=== PATIENT | female | born 1990 | race Caucasian/White ===

== ENCOUNTER 2020-09-20 09:57 | Emergency (ER) | payer MEDICARE ==
[~2020-09-20] VITALS: Ht 167.6 cm; Wt 53.5 kg
--- NOTE | 2020-09-20 10:12 | NUR ---
dr henriquez at bedside for eval.
--- NOTE | 2020-09-20 10:28 | NUR ---
radiology at bedside for R wrist xray.
[2020-09-20] MEDS ORDERED: HYDROCODONE/APAP 5/325MG TABLET PO ONE (10:30)
[2020-09-20] MEDS ORDERED: HYDROCODONE/APAP 5/325MG TABLET ONE (10:31)
[2020-09-20] MEDS ORDERED: ACETAMINOPHEN 325 MG TABLET ONE (10:35)
--- NOTE | 2020-09-20 10:39 | NUR ---
pt refused norco. ermd aware. tylenol 650mg given po for ermd verbal order.
[2020-09-20] MEDS ORDERED: LIDOCAINE 1%-EPI 1:100,000 20 ML VIAL ONE (11:06)
[2020-09-20 11:52] VITALS: BP 145/92
--- NOTE | 2020-09-20 11:52 | NUR ---
laceration repair done using skin adhesive. Patient discharged to home in stable condition. Written and verbal after care instructions given. Patient verbalizes understanding of instruction.
== END 2020-09-20 11:53 | disposition home or self-care (01) ==
LOC: ER 10:00
DX: S01.81XA Laceration without foreign body of other part of head, initial encounter (principal); S63.8X1A Sprain of other part of right wrist and hand, initial encounter; S09.8XXA Other specified injuries of head, initial encounter; I10 Essential (primary) hypertension; E78.5 Hyperlipidemia, unspecified; E11.9 Type 2 diabetes mellitus without complications; G89.29 Other chronic pain; Z98.890 Other specified postprocedural states; W18.39XA Other fall on same level, initial encounter; Y93.K1 Activity, walking an animal; Y92.89 Other specified places as the place of occurrence of the external cause; Y99.8 Other external cause status
CPT/HCPCS: 12011; 73130; 99283; A6403; J3490

== ENCOUNTER 2020-10-06 15:04 | Inpatient (IN) | payer MEDICARE, OTHER ==
[2020-10-06] VITALS: BP 157/103
[~2020-10-06] VITALS: Ht 167.6 cm; Wt 52.6 kg
--- NOTE | 2020-10-06 15:20 | NUR ---
PT BIBRA 38 FROM HOME, NAUSEA AND VOMITING X 4 DAYS,BLOOD SUGAR ABOVE >500 PER EMS REPORT. PT AAOX4, RESPIRATIONS EVEN AND UNLABORED ON RA W/ NAD NOTED. PT CONNECTED TO THE AIRPORT CLERK AND POX
[2020-10-06] MEDS ORDERED: ONDANSETRON HCL/PF 4 MG/2 ML VIAL IVP ONE (15:30)
[2020-10-06] MEDS ORDERED: IV NS 0.9% 1,000 ML BAG IV ONE ×2 (15:30→16:30)
--- NOTE | 2020-10-06 15:30 | NUR ---
BLOOD COLLECTED AND SENT TO LAB
[2020-10-06] MEDS ORDERED: ONDANSETRON HCL/PF 4 MG/2 ML VIAL ONE ×2 (15:32→20:25)
[2020-10-06] MEDS ORDERED: DULO60CA64 PO (15:43)
[2020-10-06] MEDS ORDERED: ACYC400T PO (15:43)
[2020-10-06] MEDS ORDERED: HYDR-4076 PO (15:43)
[2020-10-06] MEDS ORDERED: PRUC1TAB PO ×2 (15:43→16:41)
[2020-10-06] MEDS ORDERED: GABA600T12 PO (15:43)
[2020-10-06] MEDS ORDERED: ISOS30TA6 PO (15:43)
[2020-10-06] MEDS ORDERED: OXYC36CA PO (15:43)
[2020-10-06 15:51] LABS: BASOPHILS # (AUTO) 0.1 /CMM (0.0-0.2); BASOPHILS % (AUTO) 0.5 % (0.0-2.0); HEMATOCRIT 40 % (33-45); HEMOGLOBIN 12.7 g/dL (11.5-14.8); LYMPHOCYTES # (AUTO) 1.5 /CMM (0.8-4.8); LYMPHOCYTES % (AUTO) 7.2 % (20.0-44.0); MEAN CORPUSCULAR HGB CONC 32 g/dl (31.0-36.0); MEAN CORPUSCULAR VOLUME 99 fL (82-100); MONOCYTES # (AUTO) 0.9 /CMM (0.1-1.30); NEUTROPHILS # (AUTO) 19.1 /CMM (1.8-8.9); NEUTROPHILS % (AUTO) 88.3 % (43.0-81.0); PLATELET COUNT (AUTO) 288 /CMM (150-450); RED BLOOD CELL COUNT(AUTO) 4.05 MIL/uL (4.0-5.2); WHITE BLOOD COUNT (AUTO) 21.6 K/uL (4.3-11.0)
--- NOTE | 2020-10-06 15:59 | NUR ---
covid swab done sent to lab
--- NOTE | 2020-10-06 16:13 | NUR ---
PT UNABLE TO PROVIDE URINE AT THIS TIME. MD THOMASON
[2020-10-06 16:15] LABS: CALCIUM, SERUM 9.4 mg/dL (8.5-10.1); CREATININE 3.6 mg/dL (0.6-1.3); POTASSIUM 4.9 mmol/L (3.5-5.1)
[2020-10-06 16:17] LABS: ALBUMIN 3.5 g/dL (3.4-5.0); BILIRUBIN,DIRECT 0.2 mg/dL (0.0-0.2); BILIRUBIN,TOTAL 0.7 mg/dL (0.2-1.0); TOTAL PROTEIN, SERUM 7.2 g/dL (6.4-8.2)
--- NOTE | 2020-10-06 17:23 | NUR ---
URINE COLLECTED AND SENT TO LAB
[2020-10-06] MEDS ORDERED: HYDROMORPHONE 1 MG/1 ML DISP.SYRIN ONE (17:24)
[2020-10-06] MEDS ORDERED: HYDROMORPHONE 1 MG/1 ML DISP.SYRIN IV ONE (17:30)
[2020-10-06 17:53] LABS: BAND % (MANUAL) 6 % (0.0-5.0); LYMPHOCYTES % (MANUAL) 8 % (16-48); MONOCYTES % (MANUAL) 7 % (0-11.0); NEUTROPHILS % (MANUAL) 79 (42-76)
[2020-10-06] MEDS ORDERED: INSULIN REGULAR, HUMAN 100 UNIT in IV NS 0.9% 100 ML IV STA ×2 (17:55)
[2020-10-06] MEDS ORDERED: IV PREMIX NS +20MEQ KCL 1,000 L IV PRN (18:00)
[2020-10-06] MEDS ORDERED: INSULIN REGULAR, HUMAN 100 UNIT/ML 10 ML VIAL ONE (18:01)
--- NOTE | 2020-10-06 18:06 | NUR ---
CALLED PHARMACY FOR ORDERED MEDS
[2020-10-06 18:16] LABS: BILIRUBIN,URINE Negative (NEGATIVE); BLOOD, URINE Trace-lysed Ery/uL (NEGATIVE); COLOR,URINE YELLOW (YELLOW); LEUKOCYTE ESTERASE ,URINE Negative (NEGATIVE); NITRITE, URINE Negative (NEGATIVE); PROTEIN,URINE 100 mg/dl (NEGATIVE); UGLUCOSE 500 MG/DL mg/dL (NEGATIVE); UROBILINOGEN,URINE 0.2 EU/dL (0.2)
[2020-10-06 18:21] LABS: MAGNESIUM 2.2 mg/dL (1.8-2.4); PHOSPHORUS 7.5 mg/dL (2.5-4.9)
[2020-10-06 18:26] LABS: BACTERIA,URINE Rare /HPF (None Seen); SQUAMOUS EPITHELIAL CELL,UR Few /HPF (None Seen); WBC,URINE NONE SEEN /HPF (0-3)
--- NOTE | 2020-10-06 19:39 | NUR ---
COVID SWAB COLLECTED AND SENT TO LAB
[2020-10-06] MEDS ORDERED: hydrALAZINE HCL IV 20 MG VIAL ONE (20:24)
[2020-10-06] MEDS ORDERED: ONDANSETRON HCL/PF - ER 4 MG/2 ML VIAL IV ONE (20:30)
[2020-10-06] MEDS ORDERED: hydrALAZINE HCL IV 20 MG VIAL IV ONE (20:30)
--- NOTE | 2020-10-06 21:30 | NUR ---
REPORT GIVEN TO LAURA MEDRANO FOR [facility]
--- NOTE | 2020-10-06 21:46 | NUR ---
BP 191/113. REPORTED TO ER . NO ORDERS RECEIVED
[2020-10-06 21:55] LABS: CALCIUM, SERUM 8.7 mg/dL (8.5-10.1); CREATININE 3.1 mg/dL (0.6-1.3); PHOSPHORUS 5.6 mg/dL (2.5-4.9); POTASSIUM 4.6 mmol/L (3.5-5.1)
[2020-10-06] MEDS ORDERED: MAGNESIUM HYDROXIDE 30 ML UDC PO PRN (22:00)
[2020-10-06] MEDS ORDERED: ACETAMINOPHEN 325 MG TABLET PO PRN (22:00)
[2020-10-06] MEDS ORDERED: Z GUARD REMEDY 2 OZ OINT TP PRN (22:00)
[2020-10-06] MEDS ORDERED: INSULIN REGULAR, HUMAN 100 UNIT in IV NS 0.9% 99 ML IV PRN ×2 (22:00)
--- NOTE | 2020-10-06 22:15 | NUR ---
Admitted from ER ,who presented today @ 1400 from home due to worsening nausea and vomiting and high blood sugar,states hasn't been able to eat anything /unable to take anything due to nausea including not taking any of her meds. Blood sugar in ER 755 , WV=972 ,WBC= 21.6 was given 2 liters NSS bolus,started on insulin drip.Dx DKA, Severe Dehydration,Acute Kidney Failure ( CREAT=3.6 ). Patient awake alert, coherent and appropriate, but very weakly and tired ,not in any respiratory distress,still with nausea, c/o back and neck pain as well (Hx of Chronic neck and back pain).BP elevated (hx of HTN) was given Apresoline x 1 dose in ER Will check FS q 1 hr while on insulin drip,pain management , follow up BMP .Closely monitor BP .
[2020-10-06 22:23] VITALS: BP 201/120
[2020-10-06 22:26] VITALS: BP 211/97
[2020-10-06 22:30] VITALS: BP 217/112
[2020-10-06] MEDS: BLOOD SUGAR DIAGNOSTIC 1 EACH STRIP IN SCH ×2 (22:31→23:09)
[2020-10-06] MEDS: HYDROMORPHONE INJ 2 MG/ML DISP.SYRIN IV PRN (22:52)
[2020-10-06] MEDS: ONDANSETRON HCL/PF 4 MG/2 ML VIAL IVP PRN (22:58)
[2020-10-06 23:00] VITALS: BP 200/103
[2020-10-06] MEDS: ENOXAPARIN SODIUM 30 MG/0.3 ML DISP.SYRIN SQ SCH (23:03)
[2020-10-06 23:30] VITALS: BP 212/112
[2020-10-06 23:32] LABS: CALCIUM, SERUM 8.2 mg/dL (8.5-10.1); MAGNESIUM 1.8 mg/dL (1.8-2.4); PHOSPHORUS 4.2 mg/dL (2.5-4.9); POTASSIUM 4.6 mmol/L (3.5-5.1)
[2020-10-06] MEDS ORDERED: LABETALOL HCL IV 100MG VIAL ONE (23:42)
[2020-10-06] MEDS: LABETALOL 20 MG/4 ML VIAL IV PRN (23:44)
--- NOTE | 2020-10-06 23:45 | NUR ---
BP still elevated despite giving pain medication ,patient calm and asleep.PRN Labetalol 10 mg IVP given.
[2020-10-07] VITALS (37 sets, daily range): BP systolic 135–214; BP diastolic 79–122
--- NOTE | 2020-10-07 | NUR ---
Stable ,BP down in the 150's systolic,denies any pain
[2020-10-07] MEDS: IV NS 0.9% 1,000 ML IV PRN ×3 (00:26→20:19)
[2020-10-07] MEDS: BLOOD SUGAR DIAGNOSTIC 1 EACH STRIP IN SCH ×12 (01:15→21:50)
--- NOTE | 2020-10-07 02:00 | NUR ---
BSFS jve=[id number] ,insulin drip continues.
--- NOTE | 2020-10-07 05:00 | NUR ---
BP high again in the 200's systolic,patient not in pain, asleep.Labetalol PRN 10 mg iVP given
[2020-10-07 05:01] LABS: BASOPHILS % (AUTO) 0.1 % (0.0-2.0); HEMATOCRIT 37 % (33-45); HEMOGLOBIN 12.6 g/dL (11.5-14.8); LYMPHOCYTES # (AUTO) 2.5 /CMM (0.8-4.8); LYMPHOCYTES % (AUTO) 13.5 % (20.0-44.0); MEAN CORPUSCULAR HGB CONC 34 g/dl (31.0-36.0); MEAN CORPUSCULAR VOLUME 93 fL (82-100); MONOCYTES # (AUTO) 0.7 /CMM (0.1-1.30); NEUTROPHILS % (AUTO) 82.4 % (43.0-81.0); PLATELET COUNT (AUTO) 299 /CMM (150-450); WHITE BLOOD COUNT (AUTO) 18.2 K/uL (4.3-11.0)
[2020-10-07 05:09] LABS: ALBUMIN 3.5 g/dL (3.4-5.0); BILIRUBIN,TOTAL 0.5 mg/dL (0.2-1.0); CALCIUM, SERUM 8.9 mg/dL (8.5-10.1); CALCIUM, SERUM 9.1 mg/dL (8.5-10.1); CREATININE 2.9 mg/dL (0.6-1.3); MAGNESIUM 2.1 mg/dL (1.8-2.4); PHOSPHORUS 2.5 mg/dL (2.5-4.9); PHOSPHORUS 2.6 mg/dL (2.5-4.9); POTASSIUM 4.4 mmol/L (3.5-5.1); TOTAL PROTEIN, SERUM 7.2 g/dL (6.4-8.2)
[2020-10-07] MEDS: LABETALOL 20 MG/4 ML VIAL IV PRN ×4 (05:09→16:18)
--- NOTE | 2020-10-07 06:00 | NUR ---
STILL ON INSULIN DRIP ,NO CHANGE,STILL FEELING VERY WEAK BUT NO NAUSEA AND NO VOMITING.
--- NOTE | 2020-10-07 07:00 | NUR ---
RN NOTES RECEIVED PT ON BED, A/Ox4, ON TELE SR HR IN 90'S, NPO ,C/O NAUSEA , REQUESTING ZOFRAN , L AC IV SITE G 18 AND R AC IV SITE G 20 , CLEAN,DRY AND INTACT, ON INSULIN GTT AT 4.2 U/HR AT THIS TIME, NS AT 125CC/HR RUNNING , SR UP x3, CALL LIGHT WITHIN EASY REACH, BED LOCKED AND IN LOWEST POSITION, CONTINUE TO MONITOR .
--- NOTE | 2020-10-07 07:00 | NUR ---
REPORT GIVEN TO DEX SANCHEZ.MP=[id number],INSULIN DRI @ 4.2 UNITS/HR,ANION GAP=19 THIS AM, REPEAT BMP @ 0700
[2020-10-07] MEDS: ONDANSETRON HCL/PF 4 MG/2 ML VIAL IVP PRN (07:28)
[2020-10-07 08:02] LABS: PHOSPHORUS 2.3 mg/dL (2.5-4.9); POTASSIUM 4.3 mmol/L (3.5-5.1)
[2020-10-07 08:11] LABS: CALCIUM, SERUM 9.1 mg/dL (8.5-10.1)
[2020-10-07] MEDS: DULOXETINE HCL 30 MG CAPSULE.DR PO SCH ×2 (08:15→08:42)
[2020-10-07] MEDS: ACYCLOVIR 800 MG TABLET PO SCH ×3 (08:15→16:26)
[2020-10-07] MEDS: GABAPENTIN 300 MG CAPSULE PO SCH ×2 (08:15→08:43)
[2020-10-07] MEDS: hydrALAZINE HCL 25 MG TABLET PO SCH ×3 (08:16→16:25)
[2020-10-07] MEDS: ISOSORBIDE MONONITRATE (30MG) 30 MG TAB.SR.24H PO SCH (08:16)
[2020-10-07] MEDS ORDERED: IV PREMIX NS +20MEQ KCL 20 MEQ/L BAG IV ONE (09:00)
--- NOTE | 2020-10-07 09:30 | NUR ---
RN NOTES DR MARGARET MAYS REGARDIN BG [id number] , NEW ORDER RECEIVED .
[2020-10-07] MEDS ORDERED: INSULIN GLARGINE, 100 UNIT/ML CARTRIDGE SQ ONE ×2 (10:00→11:30)
[2020-10-07] MEDS ORDERED: DEXTROSE 50%-WATER 50 ML DISP.SYRIN IV PRN (10:00)
--- NOTE | 2020-10-07 10:00 | NUR ---
RN NOTES PT REFUSED AM CARE.
[2020-10-07] MEDS ORDERED: ONDANSETRON HCL/PF 4 MG/2 ML VIAL IV ONE (11:30)
[2020-10-07] MEDS: XTAMPZA 36 MG PO SCH ×2 (11:30→21:00)
[2020-10-07] MEDS: HYDROMORPHONE INJ 2 MG/ML DISP.SYRIN IV PRN ×4 (11:33→23:39)
--- NOTE | 2020-10-07 11:45 | NUR ---
RN NOTES PT REFUSED TO EAT , LANTUS INSULIN [address] ROBLES ORDER .
[2020-10-07 11:51] LABS: CALCIUM, SERUM 8.8 mg/dL (8.5-10.1); CREATININE 2.8 mg/dL (0.6-1.3); MAGNESIUM 1.9 mg/dL (1.8-2.4); PHOSPHORUS 2.4 mg/dL (2.5-4.9); POTASSIUM 4.6 mmol/L (3.5-5.1)
[2020-10-07] MEDS: MOTEGRITY PO SCH ×2 (12:10→12:22)
[2020-10-07] MEDS: INSULIN REGULAR, HUMAN 100 UNIT/ML 3 ML VIAL SQ PRN ×3 (12:34→21:51)
--- NOTE | 2020-10-07 12:52 | NUR ---
RN NOTES DR MARGARET MAYS REGARDING HIGH BP , CONTINUE TO MONITOR
--- NOTE | 2020-10-07 14:00 | NUR ---
RN NOTES PT STILL REFUSING AM CARE .
[2020-10-07] MEDS ORDERED: Sodium Phosphate 15 MMOL in IV NS 0.9% 250 ML IV ONE (15:00)
[2020-10-07] MEDS ORDERED: POTASSIUM PHOSPHATE MM 7.5 MMOL in IV NS 0.9% 100 ML IV ONE (16:00)
--- NOTE | 2020-10-07 16:26 | NUR ---
RN NOTES PT REFUSED PO MEDS , STATED WANTS THEM IN IV FORM ONLY , EDUCATION REINFORCED REGARDING HOW IMPORTANT IS TO TAKE HER PO MEDS, PT STILL REFUSED PO MEDS
--- NOTE | 2020-10-07 17:22 | NUR ---
RN NOTES OK TO TRANSFER PT TO MED SURG EVEN THOUGH PCR IS PENDING , PT IS LOW PROBABILITY PER DR ROBLES
[2020-10-07 17:30] LABS: CALCIUM, SERUM 8.4 mg/dL (8.5-10.1); CREATININE 2.7 mg/dL (0.6-1.3); POTASSIUM 4.1 mmol/L (3.5-5.1)
--- NOTE | 2020-10-07 18:00 | NUR ---
RN NOTES PT REFUSED PM CARE , WANTS HER ROOM DARK WITH CLOSED DOOR AT ALL TIMES, REFUSED PO MEDS AND REQUESTING HER IV DILAUDID ONLY AND STATED ANY NOISE MAKES HER NAUSEOUS AND FEELS LIKE THROWING UP ON STAFF MEMBERS.
--- NOTE | 2020-10-07 18:10 | NUR ---
RN NOTES PT LAYING IN BED , STABLE, ABLE TO USE BEDSIDE COMMODE, REFUSED PO MEDS AT TIMES, NS AT 75CC/HR RUNNING, L AC AND R AC IV SITES, CLEAN, DRY AND INTACT, SR UP x3, CALL LIGHT WITHIN EASY REACH ,BED LOCKED AND IN LOWEST POSITION, WILL ENDORSE TO SPECIAL WARF[employer] BOAT OPERATOR NURSE FOR CONTINUITY OF CARE .
--- NOTE | 2020-10-07 18:55 | NUR ---
RN MS NOTES RECEIVED PT FROM PILE DRIVING NOZZLEMAN [place]LAND VIA BED, PT IS AWAKE, ALERT AND ORIENTED, NOT IN DISTRESS, ROOM SET UP ORIENTATION PROVIDED TO PT, VERBALIZED UNDERSTANDING, PT'S OWN MEDS KEPT AT LOCKED NARCOTIC BOX, COUNTED WITH PILE DRIVING NOZZLEMAN, ENDORSED TO DONKEY RIDE OPERATOR RN, CALL LIGHT PLACED WITHIN REACH, PT PREFERS DOOR CLOSED.
--- NOTE | 2020-10-07 19:05 | NUR ---
RN NOTES PT TRANSFERRED TO ROOM 316-2, MED SURG STATUS IN STABLE CONDITION WITH ALL HER BELONGINGS .
--- NOTE | 2020-10-07 19:10 | NUR ---
RN opening notes Received Pt from morning nurse. Pt is resting in bed comfortably. Pt is alert and orientedX3. Respiration is normal in room air. No SOB. No S/S of distress noted. IV site at LAC# 18 is clean, intact and infusing well NS@ 75 ml/hr. IV site at RAC# 20 is clean, intact and flushes well. Safety precautions is maintained. Bed at low position, brakes locked, side rails upX3 and call light is within reach. Pt preferred door to be closed. Will continue to monitor.
--- NOTE | 2020-10-07 20:14 | NUR ---
RN notes Pt is complaining of pain on her neck and back 8/10 on pain scale and requesting pain meds dilaudid. Administered dilaudid 1 mg/ IV push as ordered. Explained risks and benefits. VS is taken. BP 170/103, pulse 89. safety precautions is maintained. Will continue to monitor.
[2020-10-07] MEDS: ENOXAPARIN SODIUM 30 MG/0.3 ML DISP.SYRIN SQ SCH (21:41)
--- NOTE | 2020-10-07 21:50 | NUR ---
RN notes Pt refused PM meds Xtampza ER 36 mg. Pt stated " I'm fine." Pt also stated "I just want dilaudid." Explained risks and benefits. Will continue to monitor.
--- NOTE | 2020-10-07 21:55 | NUR ---
Met with patient at bedside. States she lives locally alone. She is ambulatory and independent with adl's. Has multiple complex medical hx includes chronic kidney disease, DM, peripheral neuropathy, diabetic gastroparesis. Her friend Slade Aguayo [phone] is her manager personnel selection. She will make her transportation arrangement when discharge.. Addendum: 10/07/20 at 2156 by ROMANA PARHAM RN Amended: Links added.
[2020-10-08] MEDS: BLOOD SUGAR DIAGNOSTIC 1 EACH STRIP IN SCH ×6 (00:10→22:12)
[2020-10-08] MEDS: INSULIN REGULAR, HUMAN 100 UNIT/ML 3 ML VIAL SQ PRN ×6 (00:14→22:19)
--- NOTE | 2020-10-08 00:31 | NUR ---
RN notes Pt's blood sugar is 158 and administered regular insulin 2 units. Explained risks and benefits for hypoglycemia and hyperglycemia. Pt refused to eat. Explained risks and benefits. Pt stated "Not Now!! and covered her face. Will continue to monitor.
[2020-10-08 01:29] LABS: BILIRUBIN,URINE NEGATIVE (NEGATIVE); BLOOD, URINE TRACE-INTA Ery/uL (NEGATIVE); COLOR,URINE YELLOW (YELLOW); LEUKOCYTE ESTERASE ,URINE NEGATIVE (NEGATIVE); NITRITE, URINE NEGATIVE (NEGATIVE); PROTEIN,URINE 100 mg/dl (NEGATIVE); UGLUCOSE >=1000 mg/dL (NEGATIVE); UROBILINOGEN,URINE 0.2 EU/dL (0.2)
--- NOTE | 2020-10-08 01:30 | NUR ---
RN NOTES/CHARGE NOTES PT. WAS VOMITING AND ZOFRAN 4 MM IS NOT DUE UNTIL 0330AM , INFORMED SHIVANI BARNETT AND GAVE ME AN ORDER OF REGLAN 10MG IV X1 ORDER NOTED AND CARRIED OUT Addendum: 10/09/20 at 0200 by ALOK EDWARDS RN ZOFRAN 4 MG -- NOTES SUPPOSED TO BE 10/09/20 AT 0130
[2020-10-08 01:40] LABS: CREATININE, URINE 45.5 MG/DL (30.0-125.0); URINE TOTAL PROTEIN 243.4 mg/dL (0-11.9)
[2020-10-08 01:51] LABS: BACTERIA,URINE Many /HPF (None Seen); SQUAMOUS EPITHELIAL CELL,UR Moderate /HPF (None Seen)
[2020-10-08 01:52] LABS: URINE AMORPHOUS URATE Moderate /HPF (None Seen)
[2020-10-08 02:40] LABS: EOSINOPHIL,URINE None Seen
[2020-10-08] MEDS: IV NS 0.9% 1,000 ML IV PRN (04:59)
[2020-10-08] MEDS: HYDROMORPHONE INJ 2 MG/ML DISP.SYRIN IV PRN ×4 (05:14→23:12)
--- NOTE | 2020-10-08 06:55 | NUR ---
RN closing notes Pt is resting in bed comfortably. Pt is alert and orientedX3. Respiration is normal in room air. No SOB. No S/S of distress noted. IV site at LAC# 18 is clean, intact and infusing well NS@ 75 ml/hr. IV site at RAC# 20 is clean, intact and flushes well. Vs is stable. Afebrile. Routine meds were given as ordered. Kept Pt clean, dry and comfortable. Safety precautions is maintained. Bed at low position, brakes locked, side rails upX3 and call light is within reach. Will endorse to morning nurse for [facility].
--- NOTE | 2020-10-08 07:52 | NUR ---
RN MS NOTE PATIENT IN BED RESTING COMFORTABLY. PATIENT IS IN NO ACUTE DISTRESS. NO SOB NOTED. PATIENTS BREATHING IS EVEN AND UNLABORED. PATIENT BED ALARM IS ON. SAFETY PRECAUTIONS IN PLACE. PATIENT BED IS LOCKED AND IN LOWEST POSITION. CALL LIGHT WITHIN REACH. WILL CONTINUE TO MONITOR.
[2020-10-08 08:27] LABS: BASOPHILS # (AUTO) 0.1 /CMM (0.0-0.2); BASOPHILS % (AUTO) 0.4 % (0.0-2.0); HEMATOCRIT 28 % (33-45); HEMOGLOBIN 9.6 g/dL (11.5-14.8); LYMPHOCYTES # (AUTO) 1.7 /CMM (0.8-4.8); LYMPHOCYTES % (AUTO) 9.7 % (20.0-44.0); MEAN CORPUSCULAR HGB CONC 34 g/dl (31.0-36.0); MEAN CORPUSCULAR VOLUME 95 fL (82-100); MONOCYTES # (AUTO) 0.8 /CMM (0.1-1.30); MONOCYTES % (AUTO) 4.6 % (2.0-12.0); NEUTROPHILS # (AUTO) 14.6 /CMM (1.8-8.9); NEUTROPHILS % (AUTO) 85.3 % (43.0-81.0); PLATELET COUNT (AUTO) 201 /CMM (150-450); WHITE BLOOD COUNT (AUTO) 17.2 K/uL (4.3-11.0)
[2020-10-08] MEDS: MOTEGRITY PO SCH (09:00)
[2020-10-08] MEDS: ONDANSETRON HCL/PF 4 MG/2 ML VIAL IVP PRN ×3 (09:05→23:12)
[2020-10-08 09:19] LABS: ALBUMIN 2.7 g/dL (3.4-5.0); BILIRUBIN,TOTAL 0.4 mg/dL (0.2-1.0); CALCIUM, SERUM 8.7 mg/dL (8.5-10.1); CREATININE 2.5 mg/dL (0.6-1.3); MAGNESIUM 1.7 mg/dL (1.8-2.4); PHOSPHORUS 2.9 mg/dL (2.5-4.9); POTASSIUM 3.7 mmol/L (3.5-5.1); TOTAL PROTEIN, SERUM 5.7 g/dL (6.4-8.2)
[2020-10-08] MEDS: GABAPENTIN 300 MG CAPSULE PO SCH (09:46)
[2020-10-08] MEDS: DULOXETINE HCL 30 MG CAPSULE.DR PO SCH (09:47)
[2020-10-08] MEDS: ISOSORBIDE MONONITRATE (30MG) 30 MG TAB.SR.24H PO SCH (09:47)
[2020-10-08] MEDS: hydrALAZINE HCL 25 MG TABLET PO SCH ×2 (09:47→17:11)
[2020-10-08] MEDS: XTAMPZA 36 MG PO SCH ×2 (10:02→21:00)
--- NOTE | 2020-10-08 10:20 | NUR ---
MS RN NOTE PATIENT REFUSED 0900 MOTEGRITY. EXPLAINED RISKS VS BENEFITS. PATIENT CONTINUED TO REFUSE.
[2020-10-08 12:00] VITALS: BP 148/80
[2020-10-08] MEDS ORDERED: Magnesium 1GM/D5W 100ML PREMIX 100 ML IV SCH (12:00)
--- NOTE | 2020-10-08 15:04 | NUR ---
MS RN NOTE PATIENT BP CURRENTLY IN THE 180'S SYSTOLICALLY. INFORMED DR. PONCE. PATIENT REFUSING TO HAVE PO BP MEDS AT THIS TIME. PER DR. KRIS MELGAR ORDER FOR HYDRALAZINE 20MG IV Q6H FOR SBP >160.
[2020-10-08] MEDS: hydrALAZINE HCL IV 20 MG VIAL IV PRN (15:46)
[2020-10-08] MEDS: ACYCLOVIR 200 MG CAPSULE PO SCH (17:00)
--- NOTE | 2020-10-08 17:24 | NUR ---
MS RN NOTE PATIENT REFUSING ACYCLOVIR SCHEDULED. EDUCATED RISKS VS BENEFITS. PATIENT CONTINUED TO REFUSE.
--- NOTE | 2020-10-08 18:15 | NUR ---
MS RN NOTE SPOKE WITH PATIENT MOTHER. PER MOTHER SHE WANTS TO TRANSFER PATIENT TO [facility]. I NOTIFIED DR. PONCE OF [facility] THAT PATIENTS MOTHER WOULD LIKE DR. PONCE TO SPEAK AND NUMBERS PROVIDED TO .
--- NOTE | 2020-10-08 19:06 | NUR ---
MS RN NOTE PATIENT IS IN BED RESTING COMFORTABLY. PATIENT IS IN NO ACUTE DISTRESS. NO SOB NOTED. PATIENTS BREATHING IS EVEN AND UNLABORED. PATIENT KEPT CLEAN AND DRY, COMFORTABLE THROUGHOUT THE SHIFT. NEEDS AND CONCERNS ADDRESSED. EXPLAINED ALL DUE MEDS. PATIENTS BED IS LOCKED AND AT THE LOWEST POSITION, CALL LIGHT WITHIN REACH. ENDORSE TO THE ENERGY CONSERVATION TECHNICIAN NURSE FOR [facility].
--- NOTE | 2020-10-08 19:46 | NUR ---
RN OPENING MS NOTE PATIENT BED RESTING COMFORTABLY. A/OX4. IN NO ACUTE DISTRESS. NO SOB NOTED. RESPIRATIONS ARE EVEN AND UNLABORED. DENIES PAIN OR DISCOMFORT AT THIS TIME. BED ALARM IS ON. IV SITE ON RAC#20 PATENT AND INTACT. SAFETY PRECAUTIONS IN PLACE. PATIENT BED IS LOCKED AND IN LOWEST POSITION. CALL LIGHT WITHIN REACH. WILL CONTINUE TO MONITOR.
[2020-10-08 20:00] VITALS: BP 170/70
[2020-10-08] MEDS: ENOXAPARIN SODIUM 30 MG/0.3 ML DISP.SYRIN SQ SCH (22:11)
--- NOTE | 2020-10-08 22:22 | NUR ---
MS RN NOTE: NON ADMINISTERED OF HOME MEDICATION XTAMPZA ER SCHEDULED AT 2100 DUE TO DRUG NOT AVAILABLE. CHARGE NURSE MADE AWARE WELL HECTOR RUSS.
--- NOTE | 2020-10-08 23:13 | NUR ---
MS NOTE: LOWER BACK PAIN PATIENT C/O LOWER BACK PAIN ON A PAIN SCALE OF 8/10. ADMINISTERED DILAUDID 1MG/0.5ML IV PUSH GIVEN. WILL CONTINUE TO REASSESS FOR THE EFFECTIVENESS.
[2020-10-09 00:43] VITALS: BP 172/104
[2020-10-09] MEDS: hydrALAZINE HCL IV 20 MG VIAL IV PRN ×2 (00:47→17:36)
[2020-10-09] MEDS: INSULIN REGULAR, HUMAN 100 UNIT/ML 3 ML VIAL SQ PRN ×4 (00:54→16:50)
[2020-10-09] MEDS: BLOOD SUGAR DIAGNOSTIC 1 EACH STRIP IN SCH ×6 (01:09→21:26)
--- NOTE | 2020-10-09 01:30 | NUR ---
RN NOTES/CHARGE NOTES PT. WAS VOMITING AND ZOFRAN 4 MG IS NOT DUE UNTIL 0330AM , INFORMED SHIVANI RUSS -HECTOR AND GAVE ME AN ORDER OF REGLAN 10MG IV X1 ORDER NOTED AND CARRIED OUT
--- NOTE | 2020-10-09 01:44 | NUR ---
MS-RN NOTE: NAUSEA AND VOMITING PATIENT HAD AN EPISODE OF NAUSEA AND VOMITING X3. CHARGE NURSE SPOKE WITH HECTOR BOOGIE NOTIFIED REGARDING PATIENT'S FINDINGS WITH NEW ORDER OF REGLAN 10MG/2ML X1 DOSE NOW. WILL CONTINUE TO MONITOR.
[2020-10-09 01:50] VITALS: BP 139/92
[2020-10-09] MEDS ORDERED: METOCLOPRAMIDE HCL 10 MG/2 ML VIAL IV ONE (02:00)
[2020-10-09] MEDS: HYDROMORPHONE INJ 2 MG/ML DISP.SYRIN IV PRN ×6 (02:12→21:09)
--- NOTE | 2020-10-09 02:13 | NUR ---
MS NOTE: LOWER BACK PAIN PATIENT C/O LOWER BACK PAIN ON A PAIN SCALE OF 8/10. ADMINISTERED DILAUDID 1MG/0.5ML IVP GIVEN ORDERED. WILL CONTINUE TO REASSESS FOR THE EFFECTIVENESS.
[2020-10-09] MEDS: IV NS 0.9% 1,000 ML IV PRN ×2 (04:16→18:01)
--- NOTE | 2020-10-09 06:29 | NUR ---
MS RN NOTE PATIENT IN BED ASLEEP, AROUSES EASILY. ALERT AND ORIENTED X4. NO ACUTE DISTRESS NOTED. NO SOB NOTED. IV LINE ON RFA PATENT, INTACT AND INFUSING WELL. KEPT CLEAN AND DRY, COMFORTABLE THROUGHOUT THE SHIFT. NEEDS AND CONCERNS ADDRESSED. DENIES PAIN OR DISCOMFORT AT THIS TIME. BED IS LOCKED AND AT THE LOWEST POSITION. CALL LIGHT WITHIN REACH. ENDORSE TO THE DAY SHIFT NURSE FOR CONTINUITY OF CARE. .
[2020-10-09] MEDS: ONDANSETRON HCL/PF 4 MG/2 ML VIAL IVP PRN ×4 (07:19→19:32)
--- NOTE | 2020-10-09 07:48 | NUR ---
RN MS NOTE PATIENT IN BED RESTING COMFORTABLY. PATIENT IS IN NO ACUTE DISTRESS. NO SOB NOTED. PATIENTS BREATHING IS EVEN AND UNLABORED. PER DR. PONCE, HE SPOKE WITH PATIENTS MOTHER AND THEY DISCUSSED PLAN OF CARE YESTERDAY. PER MD STILL NEED TO HAVE ACCEPTING PHYSICIAN AND BED AT [facility]. PER AMOS BAUER WILL TAKE OVER. PATIENT BED ALARM IS ON. SAFETY PRECAUTIONS IN PLACE. PATIENT BED IS LOCKED AND IN LOWEST POSITION. CALL LIGHT WITHIN REACH. WILL CONTINUE TO MONITOR.
[2020-10-09] MEDS: GABAPENTIN 300 MG CAPSULE PO SCH (09:00)
[2020-10-09] MEDS: DULOXETINE HCL 30 MG CAPSULE.DR PO SCH (09:00)
[2020-10-09] MEDS: MOTEGRITY PO SCH (09:00)
[2020-10-09] MEDS: ACYCLOVIR 200 MG CAPSULE PO SCH ×2 (09:00→16:51)
[2020-10-09 09:07] LABS: BILIRUBIN,URINE NEGATIVE (NEGATIVE); BLOOD, URINE NEGATIVE Ery/uL (NEGATIVE); COLOR,URINE YELLOW (YELLOW); LEUKOCYTE ESTERASE ,URINE NEGATIVE (NEGATIVE); NITRITE, URINE POSITIVE (NEGATIVE); PH,URINE 5.5 (5.0-8.0); PROTEIN,URINE 100 mg/dl (NEGATIVE); UGLUCOSE >=1000 mg/dL (NEGATIVE); UROBILINOGEN,URINE 0.2 EU/dL (0.2)
[2020-10-09] MEDS: XTAMPZA 36 MG PO SCH ×2 (09:14→22:36)
[2020-10-09] MEDS: ISOSORBIDE MONONITRATE (30MG) 30 MG TAB.SR.24H PO SCH (09:15)
[2020-10-09] MEDS: hydrALAZINE HCL 25 MG TABLET PO SCH ×2 (09:16→16:51)
[2020-10-09 09:50] LABS: CREATININE, URINE 44.7 MG/DL (30.0-125.0); URINE TOTAL PROTEIN 205.2 mg/dL (0-11.9)
[2020-10-09 09:51] LABS: BASOPHILS % (AUTO) 0.1 % (0.0-2.0); HEMATOCRIT 31 % (33-45); HEMOGLOBIN 10.4 g/dL (11.5-14.8); LYMPHOCYTES # (AUTO) 1.1 /CMM (0.8-4.8); MEAN CORPUSCULAR HGB CONC 34 g/dl (31.0-36.0); MEAN CORPUSCULAR VOLUME 95 fL (82-100); MONOCYTES # (AUTO) 0.5 /CMM (0.1-1.30); MONOCYTES % (AUTO) 4.2 % (2.0-12.0); NEUTROPHILS # (AUTO) 10.2 /CMM (1.8-8.9); NEUTROPHILS % (AUTO) 86.7 % (43.0-81.0); PLATELET COUNT (AUTO) 195 /CMM (150-450); RED BLOOD CELL COUNT(AUTO) 3.25 MIL/uL (4.0-5.2); WHITE BLOOD COUNT (AUTO) 11.7 K/uL (4.3-11.0)
--- NOTE | 2020-10-09 09:51 | NUR ---
MS RN NOTE PATIENT REFUSING ACYCLOVIR, NEURONTIN, MONTEGRITY, CYMBALTA, SCHEDULED 0900 MEDICATIONS. EDUCATED RISKS VS BENEFITS. PATIENT CONTINUED TO REFUSE.
[2020-10-09 10:26] LABS: BACTERIA,URINE Moderate /HPF (None Seen); RBC,URINE 0-2 /HPF (0-2)
[2020-10-09 10:27] LABS: SQUAMOUS EPITHELIAL CELL,UR Rare /HPF (None Seen); WBC,URINE 0-3 /HPF (0-3)
[2020-10-09 10:43] LABS: CALCIUM, SERUM 8.4 mg/dL (8.5-10.1); CREATININE 2.3 mg/dL (0.6-1.3); MAGNESIUM 1.7 mg/dL (1.8-2.4); PHOSPHORUS 2.7 mg/dL (2.5-4.9); POTASSIUM 3.5 mmol/L (3.5-5.1)
[2020-10-09 12:00] VITALS: BP 155/87
[2020-10-09 13:58] LABS: EOSINOPHIL,URINE None Seen
[2020-10-09] MEDS: INSULIN GLARGINE, 100 UNIT/ML CARTRIDGE SQ SCH (16:25)
--- NOTE | 2020-10-09 16:52 | NUR ---
MS RN NOTE PATIENT REFUSING ACYCLOVIR SCHEDULED. EDUCATED RISKS VS BENEFITS. PATIENT CONTINUED TO REFUSE.
[2020-10-09] MEDS ORDERED: MAGNESIUM OXIDE 400 MG TABLET PO ONE (18:00)
[2020-10-09 18:28] VITALS: BP 158/86
--- NOTE | 2020-10-09 18:31 | NUR ---
MS RN CLOSING NOTE PATIENT IS IN BED RESTING COMFORTABLY. PATIENT IS IN NO ACUTE DISTRESS. NO SOB NOTED. PATIENTS BREATHING IS EVEN AND UNLABORED. PATIENT KEPT CLEAN AND DRY, COMFORTABLE THROUGHOUT THE SHIFT. NEEDS AND CONCERNS ADDRESSED. EXPLAINED ALL DUE MEDS. PATIENTS BED IS LOCKED AND AT THE LOWEST POSITION, CALL LIGHT WITHIN REACH. ENDORSE TO THE TRAFFIC AND TRANSPORT PLANNER NURSE FOR [facility].
[2020-10-09 18:45] LABS: CALCIUM, SERUM 8.5 mg/dL (8.5-10.1); CREATININE 2.2 mg/dL (0.6-1.3); POTASSIUM 3.3 mmol/L (3.5-5.1)
--- NOTE | 2020-10-09 19:26 | NUR ---
MS RN OPENING NOTES PATIENT AWAKE IN BED. A/OX4. ON RA; NO S/S OF ACUTE RESPIRATORY DISTRESS; BREATHING IS EVEN AND UNLABORED. IV PRESENT ON RIGHT FA, SIZE 22, INTACT & PATENT, HEP LOCKED. SAFETY MEASURES IN PLACE AND PATIENT'S NEEDS MET. BED LOCKED, SIDE RAILS X2, CALL LIGHT WITHIN REACH. WILL CONTINUE TO MONITOR.
--- NOTE | 2020-10-09 19:44 | NUR ---
MS RN NOTE PATIENT REQUESTED PRN DILAUDID 1MG, AFTER MEDICATION WAS SCANNED AND DRAWN FROM SYRINGE PATIENT STATED SHE DID NOT WANT MEDICATION ANYMORE, AND PREFERS TO WAIT LATER. MEDICATION WASTED WITH WITNESS PER PROTOCOL. Addendum: 10/09/20 at 3 by JEFF BLACKWOOD RN MED WASTE WITNESSED WITH LAURA JOSHI AND LAURA MICHAELS
[2020-10-09 20:16] VITALS: BP 173/97
[2020-10-09] MEDS: ENOXAPARIN SODIUM 30 MG/0.3 ML DISP.SYRIN SQ SCH (21:12)
[2020-10-09] MEDS ORDERED: KEY,NONCONTROL,TO KEEP IN PYXI 1 EA MC ONE (22:31)
[2020-10-09 23:37] VITALS: BP 158/98
[2020-10-10] MEDS: ONDANSETRON HCL/PF 4 MG/2 ML VIAL IVP PRN ×4 (01:49→21:48)
[2020-10-10] MEDS: HYDROMORPHONE INJ 2 MG/ML DISP.SYRIN IV PRN ×5 (01:51→22:15)
[2020-10-10] MEDS: BLOOD SUGAR DIAGNOSTIC 1 EACH STRIP IN SCH ×6 (02:08→21:00)
[2020-10-10] MEDS ORDERED: hydrALAZINE HCL IV 20 MG VIAL ONE (02:35)
[2020-10-10] MEDS: hydrALAZINE HCL IV 20 MG VIAL IV PRN (02:57)
--- NOTE | 2020-10-10 02:57 | NUR ---
MS RN NOTES PATIENT'S BP: 205/118, HR: 96. ADMINISTERED PRN APRESOLING 20 MG IV Q6H PER MD ORDERS. SAFETY MEASURES IN PLACE. WILL CONTINUE TO MONITOR.
[2020-10-10 05:13] VITALS: BP 175/98
--- NOTE | 2020-10-10 05:13 | NUR ---
MS RN NOTES PATIENT'S BP: 175/98, HR: 99. WILL CONTINUE TO MONITOR PATIENT'S VITALS.
[2020-10-10] MEDS: INSULIN REGULAR, HUMAN 100 UNIT/ML 3 ML VIAL SQ PRN ×2 (05:18→13:46)
--- NOTE | 2020-10-10 07:45 | NUR ---
MS RN NOTES PATIENT RECEIVED IN BED, EASILY AWAKEN, ALERT AND ORIENTED X 4. PATIENT ON ROOM AIR WITH NON-LABORED BREATHING, AND NO SOB NOTED AT THIS TIME. IV ACCESS INTACT AND PATENT. SKIN WARM AND DRY TO TOUCH. SAFETY PRECAUTIONS IMPLEMENTED WITH BED LOCKED,. BED IN THE LOWEST POSITION, BILATERAL SIDE RAILS UP, AND CALL LIGHT WITHIN EASY REACH OF PATIENT. WILL CONTINUE TO MONITOR PATIENT.
--- NOTE | 2020-10-10 08:02 | NUR ---
MS RN CLOSING NOTES PATIENT SLEEPING, EASY TO AWAKEN. A/OX4. STABLE ON RA; BREATHING EVEN AND UNLABORED. IV REMAINS INTACT & PATENT ON RIGHT FA, SIZE 22. SAFETY MEASURES IN PLACE AND PATIENT'S NEEDS MET. BED LOCKED, SIDE RAILS X2, CALL LIGHT WITHIN REACH. ENDORSED TO DAY SHIFT RN PLAN OF CARE.
[2020-10-10 08:58] LABS: BASOPHILS % (AUTO) 0.2 % (0.0-2.0); EOSINOPHILS % (AUTO) 0.1 % (0.0-6.0); HEMATOCRIT 30 % (33-45); HEMOGLOBIN 10.3 g/dL (11.5-14.8); LYMPHOCYTES # (AUTO) 1.2 /CMM (0.8-4.8); LYMPHOCYTES % (AUTO) 15.1 % (20.0-44.0); MEAN CORPUSCULAR HGB CONC 34 g/dl (31.0-36.0); MEAN CORPUSCULAR VOLUME 94 fL (82-100); MONOCYTES # (AUTO) 0.4 /CMM (0.1-1.30); MONOCYTES % (AUTO) 4.9 % (2.0-12.0); NEUTROPHILS # (AUTO) 6.2 /CMM (1.8-8.9); NEUTROPHILS % (AUTO) 79.7 % (43.0-81.0); PLATELET COUNT (AUTO) 185 /CMM (150-450); RED BLOOD CELL COUNT(AUTO) 3.21 MIL/uL (4.0-5.2); WHITE BLOOD COUNT (AUTO) 7.8 K/uL (4.3-11.0)
[2020-10-10] MEDS: GABAPENTIN 300 MG CAPSULE PO SCH (09:00)
[2020-10-10] MEDS: ACYCLOVIR 200 MG CAPSULE PO SCH ×2 (09:00→17:00)
[2020-10-10] MEDS: MOTEGRITY PO SCH (09:00)
[2020-10-10] MEDS: DULOXETINE HCL 30 MG CAPSULE.DR PO SCH (09:00)
[2020-10-10] MEDS ORDERED: KEY,NONCONTROL,TO KEEP IN PYXI 1 EA MC ONE ×2 (09:14→21:32)
[2020-10-10 09:19] LABS: CALCIUM, SERUM 8.2 mg/dL (8.5-10.1); CREATININE 2.1 mg/dL (0.6-1.3); MAGNESIUM 1.7 mg/dL (1.8-2.4); POTASSIUM 3.2 mmol/L (3.5-5.1)
[2020-10-10] MEDS: INSULIN GLARGINE, 100 UNIT/ML CARTRIDGE SQ SCH ×2 (09:44→17:05)
[2020-10-10] MEDS ORDERED: ONDANSETRON HCL/PF 4 MG/2 ML VIAL IV ONE (10:00)
[2020-10-10] MEDS ORDERED: MAGNESIUM OXIDE 400 MG TABLET PO ONE (10:00)
[2020-10-10] MEDS: POTASSIUM CL. PREMIX PERIPHER. 50 ML IV SCH ×2 (10:00→11:00)
[2020-10-10] MEDS: hydrALAZINE HCL 25 MG TABLET PO SCH ×2 (11:11→17:08)
[2020-10-10] MEDS: ISOSORBIDE MONONITRATE (30MG) 30 MG TAB.SR.24H PO SCH (11:12)
[2020-10-10] MEDS: XTAMPZA 36 MG PO SCH (11:13)
--- NOTE | 2020-10-10 21:00 | NUR ---
MS RN OPENING NOTES: ASSUMED CARE FOR THIS PATIENT A BIT ;ATE. SEEN PATIENT IN THE ROOM, NOTED TO BE NEEDY UNKEMPT AND DISORGANIZED. WILL ADMINISTER ORDERED MEDICATIONS.KEPT PATIENT WARM DRY AND COMFORTABLE. ACCUCHECKS CONTINUED ORDERED. IVF ON RIGHT WRIST IN PLACE G#22, WILL MEDICATE PATIENT FOR PAIN AND NAUSEA. WILL ENDORSE PATIENT TO DAY SHIFT NURSE.
[2020-10-10] MEDS: ENOXAPARIN SODIUM 30 MG/0.3 ML DISP.SYRIN SQ SCH (21:54)
[2020-10-11] MEDS ORDERED: KEY,NONCONTROL,TO KEEP IN PYXI 1 EA MC ONE ×3 (00:17→20:36)
[2020-10-11] MEDS: XTAMPZA 36 MG PO SCH ×3 (00:24→20:43)
[2020-10-11] MEDS: BLOOD SUGAR DIAGNOSTIC 1 EACH STRIP IN SCH ×6 (00:27→22:50)
[2020-10-11] MEDS: ONDANSETRON HCL/PF 4 MG/2 ML VIAL IVP PRN ×4 (02:04→20:57)
[2020-10-11] MEDS: HYDROMORPHONE INJ 2 MG/ML DISP.SYRIN IV PRN ×3 (02:29→12:08)
--- NOTE | 2020-10-11 05:39 | NUR ---
MS RN CLOSING NOTES: PATIENT IN HER ROOM, RESTING COMFORTABLY. PATIENT IS FOR IVF REINSERTION. CHARGE NURSE IS AWARE, HOWEVER WHEN ATTEMPT TO REINSERT IV WAS MADE PATIENT OPTED TO BE RESTING A LITTLE BIT MORE AND THAT SHE WILL CALL US ONCE SHE IS AWAKE. ALL OTHER SCHEDULED MEDICATIONS ADMINISTERED INCLUDING PAIN MEDICATIONS. SAFETY AND FALL PRECAUTIONS OBSERVED. BED ALARM KEPT ON. WILL ENDORSE PATIENT TO DAY SHIFT NURSE.
[2020-10-11 08:00] VITALS: BP 198/124
[2020-10-11] MEDS: DULOXETINE HCL 30 MG CAPSULE.DR PO SCH (08:46)
[2020-10-11] MEDS: GABAPENTIN 300 MG CAPSULE PO SCH (08:46)
[2020-10-11] MEDS: ACYCLOVIR 200 MG CAPSULE PO SCH ×3 (08:46→17:23)
[2020-10-11] MEDS: ISOSORBIDE MONONITRATE (30MG) 30 MG TAB.SR.24H PO SCH (08:51)
[2020-10-11] MEDS: hydrALAZINE HCL 25 MG TABLET PO SCH (08:52)
[2020-10-11] MEDS: INSULIN GLARGINE, 100 UNIT/ML CARTRIDGE SQ SCH ×3 (08:53→17:25)
[2020-10-11] MEDS: MOTEGRITY PO SCH (09:00)
[2020-10-11] MEDS: SENNOSIDES/DOCUSATE SODIUM 1 TAB TABLET PO SCH (11:15)
[2020-10-11] MEDS ORDERED: DEXTROSE 50%-WATER 50 ML DISP.SYRIN IV PRN (11:30)
[2020-10-11 11:46] LABS: BASOPHILS % (AUTO) 0.3 % (0.0-2.0); EOSINOPHILS % (AUTO) 0.6 % (0.0-6.0); HEMATOCRIT 29 % (33-45); LYMPHOCYTES # (AUTO) 1.6 /CMM (0.8-4.8); LYMPHOCYTES % (AUTO) 24.1 % (20.0-44.0); MEAN CORPUSCULAR HGB CONC 34 g/dl (31.0-36.0); MEAN CORPUSCULAR VOLUME 94 fL (82-100); MONOCYTES # (AUTO) 0.3 /CMM (0.1-1.30); MONOCYTES % (AUTO) 4.6 % (2.0-12.0); NEUTROPHILS # (AUTO) 4.7 /CMM (1.8-8.9); NEUTROPHILS % (AUTO) 70.4 % (43.0-81.0); PLATELET COUNT (AUTO) 194 /CMM (150-450); RED BLOOD CELL COUNT(AUTO) 3.11 MIL/uL (4.0-5.2); WHITE BLOOD COUNT (AUTO) 6.6 K/uL (4.3-11.0)
[2020-10-11 11:59] LABS: CALCIUM, SERUM 8.3 mg/dL (8.5-10.1); CREATININE 2.1 mg/dL (0.6-1.3)
--- NOTE | 2020-10-11 12:00 | NUR ---
MS/RN Blood sugar Blood sugar at noon 94, no coverage needed.
[2020-10-11] MEDS: hydrALAZINE HCL 50 MG TABLET PO SCH ×3 (12:11→20:31)
[2020-10-11 12:42] VITALS: BP 154/99
[2020-10-11] MEDS: CEFTRIAXONE 1 G in IV D5W 50 ML IV SCH (13:10)
[2020-10-11] MEDS ORDERED: POTASSIUM CHLORIDE 20 MEQ TAB.PRT.SR PO ONE (14:45)
[2020-10-11 14:57] LABS: THYROID STIMULATING HORMONE 1.604 uIU/mL (0.358-3.74)
--- NOTE | 2020-10-11 15:00 | NUR ---
MS/RN IVAB Stated on IVAB for urine infection.
[2020-10-11 16:00] VITALS: BP 141/90
--- NOTE | 2020-10-11 16:22 | NUR ---
MS/RN S/B Dr Chris PAULA Seen by DNP - pain medication (dilaudid) discontinued, started on stool softener.
--- NOTE | 2020-10-11 19:35 | NUR ---
MS RN OPENING NOTES PATIENT AWAKE IN BED. A/OX4. ON RA; NO S/S OF ACUTE RESPIRATORY DISTRESS; BREATHING IS EVEN AND UNLABORED. NO C/O PAIN AT THIS TIME. IV PRESENT ON LEFT HAND, SIZE 22, INTACT & PATENT, NS RUNNING AT 75 ML/HR. SAFETY MEASURES IN PLACE AND PATIENT'S NEEDS MET. BED LOCKED, SIDE RAILS X2, CALL LIGHT WITHIN REACH. WILL CONTINUE TO MONITOR.
[2020-10-11 20:00] VITALS: BP 177/64
[2020-10-11] MEDS: ENOXAPARIN SODIUM 30 MG/0.3 ML DISP.SYRIN SQ SCH ×2 (20:30→20:55)
[2020-10-11] MEDS: LISINOPRIL (10MG) 10 MG TABLET PO SCH (20:31)
[2020-10-11 20:49] VITALS: BP 177/104
[2020-10-11] MEDS: INSULIN REGULAR, HUMAN 100 UNIT/ML 3 ML VIAL SQ PRN (22:52)
[2020-10-12] MEDS: hydrALAZINE HCL 50 MG TABLET PO SCH (05:27)
[2020-10-12] MEDS: BLOOD SUGAR DIAGNOSTIC 1 EACH STRIP IN SCH ×2 (07:18→12:20)
[2020-10-12] MEDS: INSULIN REGULAR, HUMAN 100 UNIT/ML 3 ML VIAL SQ PRN (07:19)
--- NOTE | 2020-10-12 07:20 | NUR ---
MS RN NOTE PATIENT'S BS 133; PATIENT REFUSED 2 UNIT REGULAR INSULIN COVERAGE.
--- NOTE | 2020-10-12 07:35 | NUR ---
MS RN CLOSING NOTES PATIENT AWAKE IN BED. A/OX4. STABLE ON RA; BREATHING EVEN AND UNLABORED. IV REMAINS INTACT & PATENT ON LEFT WRIST, SIZE 22. SAFETY MEASURES IN PLACE AND PATIENT'S NEEDS MET. BED LOCKED, SIDE RAILS X2, CALL LIGHT WITHIN REACH. ENDORSED TO DAY SHIFT RN PLAN OF CARE.
[2020-10-12] MEDS: ONDANSETRON HCL/PF 4 MG/2 ML VIAL IVP PRN ×2 (07:57→16:50)
[2020-10-12 08:00] VITALS: BP 177/93
[2020-10-12 08:31] LABS: BASOPHILS % (AUTO) 0.5 % (0.0-2.0); EOSINOPHILS % (AUTO) 0.4 % (0.0-6.0); HEMATOCRIT 34 % (33-45); HEMOGLOBIN 11.6 g/dL (11.5-14.8); LYMPHOCYTES # (AUTO) 1.6 /CMM (0.8-4.8); LYMPHOCYTES % (AUTO) 22.6 % (20.0-44.0); MEAN CORPUSCULAR HGB CONC 34 g/dl (31.0-36.0); MEAN CORPUSCULAR VOLUME 96 fL (82-100); MONOCYTES # (AUTO) 0.4 /CMM (0.1-1.30); MONOCYTES % (AUTO) 4.9 % (2.0-12.0); NEUTROPHILS # (AUTO) 5.1 /CMM (1.8-8.9); NEUTROPHILS % (AUTO) 71.6 % (43.0-81.0); PLATELET COUNT (AUTO) 178 /CMM (150-450); WHITE BLOOD COUNT (AUTO) 7.1 K/uL (4.3-11.0)
[2020-10-12] MEDS: SENNOSIDES/DOCUSATE SODIUM 1 TAB TABLET PO SCH (09:00)
[2020-10-12] MEDS: GABAPENTIN 300 MG CAPSULE PO SCH (09:00)
[2020-10-12] MEDS: ACYCLOVIR 200 MG CAPSULE PO SCH (09:00)
[2020-10-12 09:03] LABS: CALCIUM, SERUM 8.7 mg/dL (8.5-10.1); CREATININE 2.1 mg/dL (0.6-1.3); MAGNESIUM 2.1 mg/dL (1.8-2.4); PHOSPHORUS 1.9 mg/dL (2.5-4.9); POTASSIUM 3.5 mmol/L (3.5-5.1)
--- NOTE | 2020-10-12 09:30 | NUR ---
ms rn received on bed, awake,alert,oriented x4,not inany form of distress, respirations even and unlabored,no sob noted, lungs are clear, abdomen soft,positive bowel sounds,denies pain at this time.all needs attended.
[2020-10-12] MEDS ORDERED: KEY,NONCONTROL,TO KEEP IN PYXI 1 EA MC ONE (09:53)
--- NOTE | 2020-10-12 10:00 | NUR ---
ms nguyễn breakfast served,due meds given,tolerated well.
[2020-10-12] MEDS: MOTEGRITY PO SCH (11:00)
[2020-10-12] MEDS ORDERED: NEUTRA PHOS 1 POWD.PACKET PO ONE (11:00)
[2020-10-12] MEDS: XTAMPZA 36 MG PO SCH (11:01)
[2020-10-12] MEDS: LISINOPRIL (10MG) 10 MG TABLET PO SCH (11:02)
[2020-10-12] MEDS: ISOSORBIDE MONONITRATE (30MG) 30 MG TAB.SR.24H PO SCH (11:02)
[2020-10-12] MEDS: DULOXETINE HCL 30 MG CAPSULE.DR PO SCH (11:07)
[2020-10-12 11:22] LABS: T3, FREE 1.5 pg/mL (2.0-4.4)
[2020-10-12] MEDS ORDERED: [UNRECOGNIZED DRUG - OTHER] (12:14)
[2020-10-12] MEDS ORDERED: HYDR-4077 PO (12:14)
[2020-10-12] MEDS ORDERED: INSU100I19 SQ (12:14)
[2020-10-12] MEDS ORDERED: ONDA-97 PO (12:14)
[2020-10-12] MEDS ORDERED: LISI10TA5 PO (12:14)
[2020-10-12] MEDS ORDERED: INSU100I28 SQ (12:14)
[2020-10-12] MEDS ORDERED: NEOM1OIN15 TP (12:14)
[2020-10-12 12:28] VITALS: BP 151/89
[2020-10-12] MEDS: INSULIN GLARGINE, 100 UNIT/ML CARTRIDGE SQ SCH (12:38)
[2020-10-12] MEDS ORDERED: hydrALAZINE HCL 50 MG TABLET PO SCH (13:00)
[2020-10-12] MEDS: CEFTRIAXONE 1 G in IV D5W 50 ML IV SCH (14:36)
--- NOTE | 2020-10-12 17:00 | NUR ---
ms rn patient went home,discharge instructions given and understood,all needs attended.
[2020-10-14 03:06] LABS: VITAMIN B1 THIAMINE,WB 72.4 nmol/L (66.5-200.0)
== END 2020-10-12 17:40 | disposition home or self-care (01) | DRG 637 ==
LOC: ER 15:22 → ICU 21:06 → MED 10-07 15:52 → ICU 10-07 16:02 → MED 10-07 18:50
PROVIDERS: ADMIT Nurse Practitioner Acute Care; ATTEND Nurse Practitioner Acute Care
DX: E10.10 Type 1 diabetes mellitus with ketoacidosis without coma (principal); N17.0 Acute kidney failure with tubular necrosis; E87.1 Hypo-osmolality and hyponatremia; E10.43 Type 1 diabetes mellitus with diabetic autonomic (poly)neuropathy; E10.22 Type 1 diabetes mellitus with diabetic chronic kidney disease; B00.9 Herpesviral infection, unspecified; I12.9 Hypertensive chronic kidney disease with stage 1 through stage 4 chronic kidney disease, or unspecified chronic kidney disease; N18.30 Chronic kidney disease, stage 3 unspecified; G89.4 Chronic pain syndrome; K31.84 Gastroparesis; D72.829 Elevated white blood cell count, unspecified; E78.5 Hyperlipidemia, unspecified; M19.90 Unspecified osteoarthritis, unspecified site; Z87.891 Personal history of nicotine dependence; Z91.14 Patient's other noncompliance with medication regimen; Z79.891 Long term (current) use of opiate analgesic; Z79.4 Long term (current) use of insulin; E10.42 Type 1 diabetes mellitus with diabetic polyneuropathy
CPT/HCPCS: 36415; 80048-TC; 80053-TC; 80061-TC; 80076-TC; 81001; 82550-TC; 82570-TC; 82962-TC; 83540-TC; 83690-TC; 83735-TC; 83935-TC; 83970; 84100-TC; 84155-TC; 84207; 84300-TC; 84425; 84439-TC; 84443-TC; 84481; 84703-TC; 85025-TC; 87081-TC; 87086-TC; 87186-TC; A9563; C9803; G0378; J0360; J0696; J1170; J1650; J1815; J2405; J2765; J3475; J3480; J3490; J7030; J7050; J7060; U0003